=== PATIENT | female | born 1990 | race Caucasian/White ===

== ENCOUNTER 2017-11-19 17:25 | Emergency (ER) | payer SELFPAY ==
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
[2017-11-19 19:34] VITALS: BP 108/81
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
[2017-11-19] MEDS ORDERED: Ibuprofen TAB* 800 MG PO ONE (19:56)
== END 2017-11-19 20:25 | disposition home or self-care (01) ==
LOC: ED 17:25
DX: S80.212A Abrasion, left knee, initial encounter (principal); S40.812A Abrasion of left upper arm, initial encounter; M25.561 Pain in right knee; V43.52XA Car driver injured in collision with other type car in traffic accident, initial encounter; Z87.891 Personal history of nicotine dependence
CPT/HCPCS: 99282; A9270-GY

== ENCOUNTER 2018-05-01 10:10 | Emergency (ER) | payer OTHER ==
[2018-05-01] MEDS ORDERED: Ondansetron INJ* 2 MG/ML VIAL IV ONE (10:37)
[2018-05-01] MEDS ORDERED: NS 0.9% 1000 ML* 1,000 ML IV ONE (10:37)
[2018-05-01] MEDS ORDERED: Morphine VIAL* 4 MG/ML VIAL (1 ml vial) IV ONE (10:38)
--- NOTE | 2018-05-01 10:42 | ED ---
Abdominal Pain/Female - HPI Summary HPI Summary: This pt is a 28 y/o female presenting to [facility] c/o left sided abd pain since this morning. Pt reports her abd pain woke her up from sleep today at 03:00. She describes sharp pain radiating from the left side of her umbilicus to her groin and back. At onset her pain was rated 10/10 in severity. She notes she took 4 pills of ibuprofen with mild relief. Pt reports her abdomen is distended. Denies fever, nausea, vomiting, constipation, diarrhea, chest pain, SOB. LMP: ended on 04/22/18. PMHx includes laparascopy surgery for endometriosis. - History of Current Complaint Chief Complaint: EDAbdPain Stated Complaint: PELVIC PAIN,ABD PAIN, Time Seen by Provider: 05/01/18 10:25 Hx Obtained From: Patient Hx Last Menstrual Period: 2 WEEKS AGO Onset/Duration: Lasting Hours, Still Present Timing: Hours Severity Currently: Moderate Pain Intensity: 6 Pain Scale Used: 0-10 Numeric Location: Other - left sided abd pain Radiates: Yes Radiates to: Back, Other - groin Character: Sharp Aggravating Factor(s): Nothing Alleviating Factor(s): Nothing Associated Signs and Symptoms: Negative: Fever, Chest Pain, Constipation, Nausea , Vomiting, Diarrhea Allergies/Adverse Reactions: Allergies Allergy/AdvReac Type Severity Reaction Status Date / Time pollen extracts Allergy Sneezing Verified 05/01/18 14:32 Cat Hair Allergy Sneezing Uncoded 05/01/18 14:32 Home Medications: Home Medications Albuterol HFA INHALER* [Ventolin HFA Inhaler*] 1 puff INH Q6H PRN 05/01/18 [ History Confirmed 05/01/18] Ibuprofen TAB* [Advil TAB*] 800 mg PO Q6HR PRN 05/01/18 [History Confirmed 05/01] PMH/Surg Hx/FS Hx/Imm Hx Endocrine/Hematology History: Denies: Hx Diabetes, Hx Thyroid Disease Cardiovascular History: Denies: Hx Hypertension Respiratory History: Denies: Hx Asthma, Hx Chronic Obstructive Pulmonary Disease (COPD) GI History: Denies: Hx Ulcer History: Reports: Other Problems/Disorders - endometriosis - Surgical History Surgery Procedure, Year, and Place: lap surgery for endometriosis Infectious Disease History: No Infectious Disease History: Denies: Hx Hepatitis, Hx Human Immunodeficiency Virus (HIV), Traveled Outside the [place] in Last 30 Days - Family History Known Family History: Negative: Cardiac Disease, Hypertension, Diabetes - Social History Alcohol Use: Weekly Alcohol Amount: 18pack on weekends Substance Use Type: Reports: None Smoking Status (MU): Current Some Day Smoker Have You Smoked in the Last Year: No Review of Systems Negative: Fever, Chills Negative: Chest Pain Negative: Shortness Of Breath Positive: Abdominal Pain. Negative: Vomiting, Diarrhea, Nausea, Other - constipation All Other Systems Reviewed And Are Negative: Yes Physical Exam - Summary Physical Exam Summary: VITAL SIGNS: Reviewed. GENERAL: Patient is a well-developed and nourished female who is lying comfortable in the stretcher. Patient is not in any acute respiratory distress. HEAD AND FACE: Normocephalic and atraumatic. EYES: PERRLA, EOMI x 2, No injected conjunctiva. EARS: Hearing grossly intact. Ear canals and tympanic membranes are WNL. MOUTH: Oropharynx within normal limits. NECK: Supple, trachea is midline, no adenopathy, no JVD. CHEST: Symmetric, no tenderness at palpation LUNGS: Clear to auscultation bilaterally. No wheezing or crackles. CVS: RRR, S1 and S2 present, no murmurs or gallops appreciated. ABDOMEN: Soft. Periumbilical tenderness. LLQ tenderness. No signs of distention. Positive bowel sounds. No rebound no guarding, and no masses palpated. No abdominal bruit or pulsations. EXTREMITIES: FROM in all major joints, no edema, no cyanosis or clubbing. NEURO: Alert and oriented x 3. No acute neurological deficits. Speech is normal. SKIN: Dry and warm Triage Information Reviewed: Yes Vital Signs On Initial Exam: Initial Vitals Temp Pulse Resp BP Pulse Ox 97.7 F 71 18 112/68 99 05/01/18 10:13 05/01/18 10:13 05/01/18 10:13 05/01/18 10:13 05/01/18 10:13 Vital Signs Reviewed: Yes Diagnostics - Vital Signs Vital Signs Temp Pulse Resp BP Pulse Ox 05/01/18 10:13 97.7 F 71 18 112/68 99 - Laboratory Result Diagrams: 05/01/18 11:14 05/01/18 11:14 Lab Statement: Any lab studies that have been ordered have been reviewed, and results considered in the medical decision making process. - CT Abdomen/Pelvis CT CT Interpretation Completed By: Radiologist Summary of CT Findings: IMPRESSION: 1. Fatty infiltration of the liver. 2. No acute CT pathology of the visualized portion of the abdomen and pelvis. Dr. Murray has reviewed this report. - EKG 10:55 Cardiac Rate: NL - at 81 bpm EKG Rhythm: Sinus Rhythm EKG Comparison: No Significant Change - similar to prior EKG on 01/14/15. Summary of EKG Findings: No ST elevations. Re-Evaluation - Re-Evaluation First Eval Re-Evaluation Time: 14:30 Comment: Pt declines a pelvic exam. I discussed the lab and CT results with the pt. She will be discharged home with a follow up from GI. Abdominal Pain Fem Course/Dx - Course Course Of Treatment: This pt is a 28 y/o female presenting to [facility] c/o left sided abd pain since this morning. Pt reports her abd pain woke her up from sleep today at 03:00. She describes sharp pain radiating from the left side of her umbilicus to her groin and back. At onset her pain was rated 10/10 in severity. She notes she took 4 pills of ibuprofen with mild relief. Pt reports her abdomen is distended. Denies fever, nausea, vomiting, constipation, diarrhea , chest pain, SOB. LMP: ended on 04/22/18. PMHx includes laparoscopic surgery for endometriosis. In the ED course the patient was given IV fluids, the patient was given Zofran and morphine for the pain. Blood work without any significant abnormality. Abdominopelvic CT impression: Fatty infiltration of the liver. No acute pathology of the visualized portion of the abdomen and pelvis. Patient complains of some pain therefore the patient was given Toradol for the pain. I offered the patient a pelvic exam and pelvic ultrasound but she declines. Therefore at this time the patient will be discharged home with follow-up from GI. Patient reports that she has always had left-sided abdominal pain. I discussed all the findings and test results with the patient. Patient was instructed to return to the emergency room immediately if any of the symptoms return or worsens. Plan of care was discussed with the patient and understands and agrees. All questions were answered at patient satisfaction. There were no further complaints or concerns. Lung exam before discharge: CTA B/L. Good air exchange. No wheezing or crackles heard. CVS: S1 and S2 present. No murmurs appreciated. Patient is alert and oriented x 3. Patient is hemodynamically stable. Patient will be discharged home with follow up PCP in the next 2-3 days. - Diagnoses Differential Diagnosis: Positive: Bowel Obstruction, Constipation, Diverticulitis, , Renal Colic, Urinary Tract Infection Provider Diagnoses: Left sided abdominal pain Discharge - Sign-Out/Discharge Documenting (check all that apply): Patient Departure - Discharge home - Discharge Plan Condition: Stable Disposition: HOME Patient Education Materials: Abdominal Pain (ED) Referrals: Sandra Luis MD [Primary Care Provider] - Ke Carranza MD [Medical Doctor] - Additional Instructions: CALL DR. CARRANZA'S OFFICE, gastroenterology, AND FOLLOW UP WITH HIM. RETURN TO THE ED FOR ANY NEW OR WORSENING SYMPTOMS. - Billing Disposition and Condition Condition: STABLE Disposition: Home - Attestation Statements Document Initiated by Scribe: Yes Documenting Scribe: Denisse Lara Provider For Whom Eli is Documenting (Include Credential): Kel Murray MD Scribe Attestation: Denisse Palacios, scribed for Kel Murray MD on 05/01/18 at 1829. Scribe Documentation Reviewed: Yes Provider Attestation: The documentation as recorded by the Denisse denton accurately reflects the service I personally performed and the decisions made by me, Kel Murray MD
[2018-05-01 11:39] LABS: ABS Basophils 0 10^3/ul (0-0.2); ABS Eosinophils 0.1 10^3/ul (0-0.6); ABS Lymphocytes 1.7 10^3/ul (1.0-4.8); ABS Monocytes 0.4 10^3/ul (0-0.8); ABS Neutrophils 4.5 10^3/ul (1.5-7.7); ABS Nucleated RBC 0 10^3/ul; Eosinophil % 1.6 % (0-6); Hematocrit 37 % (35-47); Hemoglobin 12.6 g/dl (12.0-16.0); Lymphocyte % 25.7 % (25-47); Mean Corpuscular HGB Conc 34 g/dl (31-36); Mean Corpuscular Hemoglobin 31 pg (27-31); Mean Corpuscular Volume 91 fL (80-97); Mean Platelet Volume 7.6 fL (7.4-10.4); Nucleated Red Blood Cells % 0.1; Platelet Count 261 10^3/ul (150-450); Red Blood Count 4.09 10^6/ul (4.00-5.40); Red Cell Distribution Width 13 % (10.5-15); White Blood Count 6.8 10^3/ul (3.5-10.8)
[2018-05-01 11:53] LABS: EGFR Non-African American 102.3 (>60)
[2018-05-01] MEDS ORDERED: Iohexol 300* (CONTRAST) 10 ML SDV IV ONE (12:54)
[2018-05-01 14:19] LABS: Urine Appearance Cloudy; Urine Blood Negative (Negative); Urine Color Straw; Urine Ketones Negative (Negative); Urine Protein Negative (Negative); Urine Specific Gravity 1.004 (1.010-1.030); Urine Urobilinogen Negative (Negative)
[2018-05-01] MEDS ORDERED: Ketorolac INJ* 30 MG/ML 1 ML VIAL IV PUSH ONE (14:31)
[2018-05-01 14:47] VITALS: BP 130/94
== END 2018-05-01 14:47 | disposition home or self-care (01) ==
LOC: ED 10:10
DX: R10.9 Unspecified abdominal pain (principal); Z72.0 Tobacco use
CPT/HCPCS: 36415; 74177; 80053; 81003; 82140; 83605; 83690; 83735; 83880; 84702; 85025; 85730; 86140; 93005; 96374; 96375; 99283; J1885; J2270; J2405; Q9967